=== PATIENT | female | born 1995 | race Caucasian/White ===

== ENCOUNTER 2016-12-12 15:09 | Inpatient (IN) | payer MEDICAID ==
[~2016-12-12] VITALS: Ht 160 cm; Wt 84.8 kg
[2016-12-12] MEDS ORDERED: LIDOCAINE HCL 1% 20ML VIAL (Pyxis) INJ INFIL SCH (16:45)
[2016-12-12] MEDS ORDERED: BUTORPHANOL TARTRATE 2 MG/ML VIAL IV PRN (16:45)
[2016-12-12] MEDS ORDERED: NALOXONE HCL 0.4 MG/ML 1ML VIAL IM PRN (16:45)
[2016-12-12] MEDS ORDERED: METHYLERGONOVINE MALEATE 0.2 MG/ML IM PRN (16:45)
[2016-12-12] MEDS ORDERED: CARBOPROST TROMETHAMINE 250 MCG/ML AMPUL IM PRN (16:45)
[2016-12-12 17:12] LABS: CLARITY URINE CLOUDY (CLEAR); COLOR URINE YELLOW (YELLOW); GLUCOSE URINE NEGATIVE (NEGATIVE); KETONES URINE NEGATIVE (NEGATIVE); LEUKOCYTE ESTERASE URINE 3+ (NEGATIVE); NITRITE URINE NEGATIVE (NEGATIVE); OCCULT BLOOD URINE NEGATIVE (NEGATIVE); PROTEIN URINE NEGATIVE (NEGATIVE); SPECIFIC GRAVITY URINE 1.013 (1.005-1.030); UROBILINOGEN URINE 0.2 E.U./dL (0.2-1.0)
[2016-12-12 17:13] LABS: BASOPHILS % 0.2 % (0.0-2.0); EOSINOPHILS % 0.1 % (0.0-5.0); HEMATOCRIT. 34.3 % (36.0-48.0); HEMOGLOBIN. 11.6 g/dL (12.0-16.0); LYMPHOCYTES % 9.9 % (20.0-50.0); MEAN CORPUSCULAR VOLUME 79.6 fL (81.0-99.0); MEAN PLATELET VOLUME 8.1 fl (7.4-10.4); MONOCYTES % 4.7 % (2.0-8.0); NEUTROPHILS % 85.1 % (40.0-76.0); PLATELET 236 x1000/uL (130-400); RED BLOOD CELL COUNT 4.31 mill/uL (4.2-5.4); RED CELL DISTRIBUTION WIDTH 14.8 % (11.6-14.6)
[2016-12-12 17:20] LABS: INR 0.9; PARTIAL THROMBOPLASTIN TIME 28.6 sec (24.0-34.0); PROTHROMBIN TIME 9.4 sec
[2016-12-12 17:22] LABS: *AMPHETAMINES SCREEN URINE NEGATIVE (NEGATIVE); *BARBITURATES SCREEN URINE NEGATIVE (NEGATIVE); *BENZODIAZEPINES SCREEN URINE NEGATIVE (NEGATIVE); *COCAINE SCREEN URINE NEGATIVE (NEGATIVE); CANNABINOID URINE SCREEN NEGATIVE (NEGATIVE); METHADONE URINE SCREEN NEGATIVE (NEGATIVE); OPIATES URINE SCREEN NEGATIVE (NEGATIVE); PHENCYCLIDINE URINE SCREEN NEGATIVE (NEGATIVE)
[2016-12-12 18:40] LABS: HEPATITIS B SURFACE ANTIGEN NEGATIVE
[2016-12-12] MEDS: LACTATED RINGERS 1,000 ML IV SCH (19:36)
[2016-12-12] MEDS ORDERED: BUPIVACAINE HCL/NS/PF EPIDURAL 100 ML EP ONE (19:37)
[2016-12-12] MEDS ORDERED: BUPIVACAINE HCL/PF 0.25% (2.5MG/ML) 10ML ONE (19:38)
[2016-12-12] MEDS: DEXT 5%/LR + PITOCIN 20UNITS/L 1,000 ML IV SCH (20:17)
[2016-12-13] MEDS: LACTATED RINGERS 1,000 ML IV SCH (00:26)
[2016-12-13] MEDS ORDERED: MISOPROSTOL 200MCG TABLET ONE (03:11)
[2016-12-13] MEDS ORDERED: DEXT 5%/LR + PITOCIN 20UNITS/L 1,000 ML IV SCH (03:16)
[2016-12-13] MEDS ORDERED: ACETAMINOPHEN WITH CODEINE 300/30MG TABLET PO PRN (03:30)
[2016-12-13] MEDS ORDERED: DIPHENHYDRAMINE 25MG CAPSULE PO PRN (03:30)
[2016-12-13] MEDS ORDERED: LANOLIN OINT 0.25 GM TUBE TOP PRN (03:30)
[2016-12-13] MEDS ORDERED: HEMORRHOIDAL SUPP PR PRN (03:30)
[2016-12-13] MEDS ORDERED: METHYLERGONOVINE MALEATE 0.2 MG/ML IM PRN (03:30)
[2016-12-13] MEDS ORDERED: BENZOCAINE/LANOLIN/ALOE VERA SPRAY TOP PRN (03:30)
[2016-12-13] MEDS ORDERED: GLYCERIN/WITCH HAZEL LEAF MEDICATED PAD TOP PRN (03:30)
[2016-12-13] MEDS: DEXT 5%/LR + PITOCIN 20UNITS/L 1,000 ML IV SCH (03:54)
[2016-12-13] MEDS ORDERED: TETANUS, DIPHTHERIA, PERTUSSIS VAC/PF 0.5ML (>7YR OLD) IM ONE (04:00)
[2016-12-13] MEDS ORDERED: ACETAMINOPHEN 325MG TABLET PO NR (04:30)
[2016-12-13 06:00] VITALS: BP 121/73
[2016-12-13 06:30] VITALS: BP 124/82
[2016-12-13 06:51] VITALS: BP 114/68
[2016-12-13 08:30] VITALS: BP 121/62
[2016-12-13 09:39] LABS: BASOPHILS % 0.1 % (0.0-2.0); HEMOGLOBIN. 9.4 g/dL (12.0-16.0); LYMPHOCYTES % 8.3 % (20.0-50.0); MEAN CORPUSCULAR HEMOGLOBIN 27.7 pg (28.0-32.0); MEAN CORPUSCULAR VOLUME 79.4 fL (81.0-99.0); MEAN PLATELET VOLUME 8.1 fl (7.4-10.4); MONOCYTES % 5.1 % (2.0-8.0); NEUTROPHILS % 86.5 % (40.0-76.0); PLATELET 200 x1000/uL (130-400); RED CELL DISTRIBUTION WIDTH 14.7 % (11.6-14.6)
[2016-12-13] MEDS: PRENATAL VIT/FE FUMARATE/FA TABLET PO SCH (16:00)
[2016-12-13] MEDS: IBUPROFEN 400MG TABLET PO PRN (16:00)
[2016-12-13 16:16] VITALS: BP 129/89
[2016-12-13] MEDS ORDERED: DOCUSATE SODIUM 100MG CAPSULE PO SCH (21:00)
[2016-12-13] MEDS: ACETAMINOPHEN WITH CODEINE 300/30MG TABLET PO PRN (21:19)
[2016-12-14 01:25] VITALS: BP 117/64
[2016-12-14 08:00] VITALS: BP 115/79
[2016-12-14] MEDS: ACETAMINOPHEN WITH CODEINE 300/30MG TABLET PO PRN (08:28)
[2016-12-14] MEDS: PRENATAL VIT/FE FUMARATE/FA TABLET PO SCH (08:28)
[2016-12-14] MEDS: IBUPROFEN 400MG TABLET PO PRN (08:29)
[2016-12-14] MEDS ORDERED: FERROUS SULFATE 325MG TABLET PO SCH (12:10)
[2016-12-15] MEDS: IBUPROFEN 400MG TABLET PO PRN (06:40)
[2016-12-15] MEDS: ACETAMINOPHEN WITH CODEINE 300/30MG TABLET PO PRN (06:41)
[2016-12-15 08:55] VITALS: BP 107/63
== END 2016-12-15 11:30 | disposition home or self-care (01) | DRG 560 ==
LOC: OBSVTOIN 15:09 → L&D 15:09 → 7EST PP/OB 12-13 06:08
PROVIDERS: ADMIT Specialist; ATTEND Specialist
PROC: 0W8NXZZ Division of Female Perineum, External Approach (ICD-10-PCS; 2016-12-13)
PROC: 3E0S3CZ (ICD-10-PCS; 2016-12-13)
PROC: 00HU33Z Insertion of Infusion Device into Spinal Canal, Percutaneous Approach (ICD-10-PCS; 2016-12-13)
PROC: 10E0XZZ Delivery of Products of Conception, External Approach (ICD-10-PCS; principal; 2016-12-13 02:55)
DX: O99.52 Diseases of the respiratory system complicating childbirth (principal); D62 Acute posthemorrhagic anemia; O99.02 Anemia complicating childbirth; O76 Abnormality in fetal heart rate and rhythm complicating labor and delivery; D72.829 Elevated white blood cell count, unspecified; J45.909 Unspecified asthma, uncomplicated; O62.2 Other uterine inertia; Z3A.37 37 weeks gestation of pregnancy; Z37.0 Single live birth
CPT/HCPCS: 36415; 80305; 81001; 85025; 85610; 85730; 86592; 86762; 86850; 86900; 87340; 87491; 90715; G0378; J0595; J2310; J2590; J3490; J7120; A4315